=== PATIENT | female | born 1935 | race Caucasian/White ===

== ENCOUNTER 2019-02-18 06:53 | Day surgery (SDC) | payer OTHER ==
[2019-02-17 12:27] LABS: Urine Appearance CLOUDY; Urine Bilirubin NEGATIVE (NEG); Urine Blood 2+ (NEG); Urine Color YELLOW; Urine Glucose NEGATIVE (NEG); Urine Protein NEGATIVE (NEG); Urine Specific Gravity 1.015 (1.005-1.030); Urine Urobilinogen 0.2 mg/dL (0.2-1.0)
[2019-02-17 12:29] LABS: RBC Red Blood Cell Count 5.59 M/uL (3.86-4.86)
[2019-02-17 12:30] LABS: Absolute Lymphocytes (CBC) 1.4 K/uL (0.7-4.9); Basophils % 0.3 % (0-1.3); Hematocrit 44.7 % (36.0-45.0); Lymphocytes % 12.1 % (15.3-44.8); MPV 6.9 fL (7.6-11.3)
[2019-02-17 12:33] LABS: Protime INR 0.89
[2019-02-17 12:38] LABS: Potassium 4.4 mmol/L (3.5-5.1)
[2019-02-17 12:42] LABS: Urine Microscopic Reflex ORDER UMIC
--- NOTE | 2019-02-17 12:42 | RAD REPORT ---
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 COMPARISON: CHEST PA AND LAT 2 VIEW dated 01/11/2015; ABDOMEN 1 VIEW KUB dated 05/16/2013 FINDINGS: The lungs are clear. The heart is normal in size. No displaced fractures. 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 Cervical hardware plate is also present.
[2019-02-17 12:57] LABS: Urine Bacteria >50 /HPF (<20); Urine Culture Reflex Order NOT NEEDED; Urine Mucus LIGHT /HPF (NONE SEEN)
--- NOTE | 2019-02-17 14:51 | EKG ---
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
[~2019-02-18 06:53] MED LIST: ATROPINE SULF 1 MG/10 ML SYR IV ONE; FENTANYL CITR 100 MCG/2 ML ONE; HEPA 1000U/500MLS 1,000 UNIT/500 ML BAG IV ONE; LIDOCAINE 1% MPF 30 ML VIAL ONE; MIDAZOLAM HCL 2 MG/2 ML INJ ONE; NA CHLORIDE 0.9% 0 ML ONE
--- OUTSIDE RECORDS SUMMARY | 2019-02-18 06:56 | XMS REPORT ---
:1935 [facility] Address [address] [place] [address] Care Team Providers Name Role Phone Unavailable Unavailable Unavailable Problems This patient has no known problems. Allergies, Adverse Reactions, Alerts This patient has no known allergies or adverse reactions. Medications This patient has no known medications.
[2019-02-18] MEDS ORDERED: NA CHLORIDE 0.9% 500 ML ONE (07:01)
[2019-02-18 11:41] VITALS: O2SAT 100
[2019-02-18 13:06] VITALS: BP 107/56; TEMP 98.2
--- NOTE | 2019-02-18 18:55 | OP ---
Date of Procedure: 02/18/2019 Surgeon: John Gomes MD Certified Lactation Counselor: Ceci Gaming. Procedure Performed: Left heart catheterization with selective coronary arteriogram. Indication: Chest pain and a positive stress test. Patient was brought to the label stitcher, prepped and draped in the routine sterile fashion. Given Versed and fentanyl for sedation. A 6-Trinidadian sheath i ntroduced in the right common femoral artery successfully. The artery was small and we decided to ho ld pressure for hemostasis. Angiography there was otherwise normal. The heart catheterization was d one using a Jeremias catheter, JR4 for the right coronary, which showed 100% occlusion of the RCA prox imal. The left system was injected with a JL3.5 6-Trinidadian. She had diffuse plaquing and tortuosity i n both circumflex and LAD. Both rhythm gave excellent collaterals to the RCA. Complications: There were no complications. Blood Loss: 5 mL. Postoperative Diagnosis: Moderate coronary artery disease. Plan: Plan is for medical therapy. Anesthesia: Total conscious sedation was 30 minutes. The patient will be watched for 4-6 hours of bedrest after holding pressure. She will go home today and she will see me in the office in the next 2 weeks. AWA/LAURA Voice ID: [id number] Report ID: [id number]
== END 2019-02-18 12:50 | disposition home health service (06) ==
LOC: CCL 06:53
PROC: B201YZZ Plain Radiography of Multiple Coronary Arteries using Other Contrast (ICD-10-PCS; principal; 2019-02-18)
DX: I25.10 Atherosclerotic heart disease of native coronary artery without angina pectoris (principal); I25.82 Chronic total occlusion of coronary artery; I10 Essential (primary) hypertension; E11.9 Type 2 diabetes mellitus without complications; K21.9 Gastro-esophageal reflux disease without esophagitis; G62.9 Polyneuropathy, unspecified; Z82.49 Family history of ischemic heart disease and other diseases of the circulatory system
CPT/HCPCS: 93005; 85025; 80048; 36415; 85610; 82947 ×2; 85730; 71046; 93454; C1893; J2250; J3010; J7040; 81003; 81015; J0583